=== PATIENT | male | born 1995 | race Two or more races ===

== ENCOUNTER 2024-05-11 12:02 | Emergency (ER) | payer OTHER ==
[~2024-05-11] VITALS: Ht 172.7 cm; Wt 82.6 kg
[2024-05-11] MEDS ORDERED: KEPPRA750 MG (12:34)
[2024-05-11] MEDS ORDERED: 0.9 % SODIUM CHLORIDE 1,000 ML IV STA (12:42)
[2024-05-11] MEDS ORDERED: HYOSCYAMINE SULFATE 0.125 MG TAB.SUBL SL ONE (12:45)
[2024-05-11] MEDS ORDERED: DIATRIZOATE MEGLUMINE, SODIUM 30 ML BOTTLE PO ONE (13:15)
[2024-05-11 13:31] LABS: HEMATOCRIT 42.2 % (39.0-48.0); HEMOGLOBIN 13.7 g/dL (13-16.00); MEAN CELL VOLUME 81.3 fL (80.0-100.00); MEAN CORPUSCULAR HEMOGLOBIN 26.5 pg (27.00-32.0); MEAN CORPUSCULAR HGB CONC 32.6 g/dl (32.0-36.0); PLATELET COUNT 278 K/uL (150-450); RED BLOOD COUNT 5.19 M/uL (4.00-6.00); RED CELL DISTRIBUTION WIDTH 14.7 % (11.5-14.5)
[2024-05-11 13:41] LABS: INR 1.04; PARTIAL THROMBOPLASTIN TIME 29.4 SECONDS (22.0-34.0); PROTHROMBIN TIME 10.9 SECONDS (9.0-11.5)
[2024-05-11 13:44] LABS: CREATININE SERUM 1.04 mg/dL (0.70-1.30); GFR 85.04; POTASSIUM 3.88 mEq/L (3.5-5.1)
[2024-05-11 14:15] LABS: URINE APPEARANCE Cloudy; URINE BILIRRUBIN Negative (NEGATIVE); URINE BLOOD Negative; URINE COLOR Yellow; URINE GLUCOSE Negative (NEGATIVE); URINE LEUKOCYTE Negative; URINE NITRATE Negative; URINE PROTEIN 30 (NEGATIVE); URINE UROBILINOGEN 0.2 E.U./dl
[2024-05-11 14:19] LABS: URINE EPITHELIAL CELLS 1.5 uL (0.0-38.8); URINE RBC 5.4 uL (0.0-20.8); URINE WBC 3.2 uL (0.0-23.2)
[2024-05-11] MEDS ORDERED: PREDNISONE20 MG PO (17:21)
[2024-05-11] MEDS ORDERED: PROTONIX40 MG PO (17:21)
[2024-05-11] MEDS ORDERED: FAMOtidine 10 MG/ML (4ML VIAL) IV PUSH ONE (17:30)
[2024-05-11] MEDS ORDERED: METHYLPREDNISOLONE SOD SUCC 125 MG VIAL IV ONE (17:30)
== END 2024-05-11 17:43 | disposition home or self-care (01) ==
LOC: ER 12:03
PROVIDERS: Emergency Medicine
DX: K62.5 Hemorrhage of anus and rectum (principal); Z88.8 Allergy status to other drugs, medicaments and biological substances; G40.89 Other seizures; K50.10 Crohn's disease of large intestine without complications

== ENCOUNTER 2024-06-11 15:16 | Emergency (ER) | payer OTHER ==
[~2024-06-11] VITALS: Ht 172.7 cm; Wt 81.6 kg
[~2024-06-11 15:16] MED LIST: KEPPRA750 MG; PREDNISONE20 MG PO; PROTONIX40 MG PO
[2024-06-11] MEDS ORDERED: ACETAMINOPHEN WITH CODEINE 1 UDTAB TABLET PO STA (17:51)
== END 2024-06-11 18:28 | disposition home or self-care (01) ==
LOC: ER 15:17
DX: K60.4 Rectal fistula (principal); K50.913 Crohn's disease, unspecified, with fistula